=== PATIENT | female | born 1925 | race Caucasian/White ===

== ENCOUNTER 2017-09-10 23:49 | Inpatient (IN) ==
[2017-09-11] MEDS ORDERED: hydrALAZINE 20 MG/1 ML VIAL IV STA (01:15)
[2017-09-11] MEDS ORDERED: hydrALAZINE 20 MG/1 ML VIAL ONE (01:19)
[2017-09-11 01:20] LABS: Basophils % 0.3 % (0.0-0.8); Eosinophils # 0.2 10*3/uL (0.0-0.87); Eosinophils % 1.8 % (0.00-10.9); Hematocrit 41.1 VOL% (35.7-47.0); Hemoglobin 13.9 GM/DL (12.0-16.0); Immature Granulocytes % 0.3 %; Immature Granulocytes Absolute 0.04 #; Lymphocytes # 2.5 10*3/uL (1.4-4.0); Lymphocytes % 20.7 % (21.3-54.2); Mean Corpuscular HGB Conc 33.8 GM/DL (32-36); Mean Corpuscular Hemoglobin 33 PG (27-34); Mean Corpuscular Volume 96.3 FL (87-102); Mean Platelet Volume 8.6 FL (9.6-12.0); Monocytes # 0.9 10*3/uL (0.11-0.8); Monocytes % 7.6 % (1.7-12.7); Neutrophils # 8.3 10*3/uL (1.4-7.4); Neutrophils % 69.3 % (38.7-73.9); Platelet Count 222 T/CUMM (130-400); Red Blood Count 4.27 MC/CUMM (3.8-5.5); Red Cell Distribution Width 12.9 % (9.3-17.3); White Blood Count 11.9 T/CUMM (4-12)
[2017-09-11 01:33] LABS: VBG Base Excess 2.1 MEQ/L (0-4); VBG HCO3 31.2 MEQ/L (24-28); VBG Oxygen Saturation 82.2 %; VBG PH 7.306; VBG PO2 45.4 MMHG (17-40)
[2017-09-11 01:57] LABS: Apearance,Urine CLEAR (Clear); Bilirubin,Urine Negative (Negative); Blood, Urine Small mg/dL (Negative); Glucose,Urine (UA) Negative (Negative); Ketones,Urine Negative (Negative); Nitrite,Urine Negative (Negative); Protein,Urine 100 MG/DL; RBC,Urine 6 /HPF (0-4); Urine Color Colorless (Yellow); Urine Specific Gravity 1.005 (1.001-1.035); Urine Urobilinogen < 2.0 EU/DL (0.2-1.0)
[2017-09-11 02:41] LABS: Alanine Aminotransferase 24 U/L (13-56); Alkaline Phosphatase 116 U/L (45-117); Aspartate Amino Transferase 21 U/L (0-37); Bilirubin,Total < 0.39 MG/DL (0.2-1.0); Blood Urea Nitrogen 13 MG/DL (7-18); Calcium 9.3 MG/DL (8.5-10.1); Glucose 131 MG/DL (74-106); Osmolality,Calculated 267.4 MOS/KG (273-304); Potassium 4.1 MMOL/L (3.5-5.1); Sodium 133 MMOL/L (136-145); Total Protein 7.7 G/DL (6.4-8.3); Troponin I Only < 0.015 NG/ML (0.00-0.045)
[2017-09-11] MEDS ORDERED: CEFEPIME 2,000 MG in SODIUM CHLORIDE 0.9% 100 ML IV STA (03:46)
[2017-09-11] MEDS ORDERED: ONDANSETRON 4 MG/2 ML VIAL IV PRN (04:43)
[2017-09-11] MEDS ORDERED: ACETAMINOPHEN 325 MG TABLET PO PRN (04:43)
[2017-09-11] MEDS ORDERED: NON-FORMULARY MEDICATION (Digoxin [Digoxin] 0.125 MG) PO SCH (05:00)
[2017-09-11] MEDS ORDERED: DIGOXIN 62.5 MCG PO SCH (05:00)
[2017-09-11] MEDS: LEVOTHYROXINE 50 MCG TABLET PO SCH (06:15)
[2017-09-11] MEDS: SODIUM CHLORIDE 0.9% 1,000 ML IV SCH (06:41)
[2017-09-11] MEDS: ALBUTEROL/IPRATROPIUM 3 ML NEB RESP TX SCH ×3 (07:45→20:07)
[2017-09-11] MEDS: VANCOMYCIN INJ 750 MG in SODIUM CHLORIDE 0.9% 250 ML IV SCH ×2 (07:48→17:28)
[2017-09-11] MEDS ORDERED: THEOPHYLLINE ER 200 MG TABLET PO SCH (08:00)
[2017-09-11] MEDS ORDERED: PANTOPRAZOLE 40 MG TABLET PO SCH (09:00)
[2017-09-11] MEDS ORDERED: FUROSEMIDE 20 MG/2 ML VIAL IV ONE (09:19)
[2017-09-11] MEDS: ASPIRIN EC 81 MG TABLET PO SCH (09:24)
[2017-09-11] MEDS: ENOXAPARIN 40 MG/0.4 ML SYRINGE SUBCUT SCH (09:24)
[2017-09-11] MEDS: CLOPIDOGREL 75 MG TABLET PO SCH (09:25)
[2017-09-11] MEDS: THEOPHYLLINE ER (24 HR) 400 MG CAPSULE PO SCH (09:25)
[2017-09-11] MEDS: ESTRADIOL 2 MG TABLET PO SCH (09:25)
[2017-09-11] MEDS: METOPROLOL TARTRATE 50 MG TABLET PO SCH ×2 (09:25→20:17)
[2017-09-11] MEDS: LOSARTAN 50 MG TABLET PO SCH (09:25)
[2017-09-11] MEDS: SELENIUM 200 MCG TABLET PO SCH (09:25)
[2017-09-11] MEDS: carBAMazepine 200 MG TABLET PO SCH ×2 (09:25→20:20)
[2017-09-11] MEDS: MULTIVITAMIN (BEROCCA) TABLET PO SCH (09:25)
[2017-09-11] MEDS: MONTELUKAST CHEW 5 MG TABLET PO SCH (09:26)
[2017-09-11] MEDS: PRAVASTATIN 20 MG TABLET PO SCH (09:26)
[2017-09-11] MEDS: BACLOFEN 10 MG TABLET PO SCH ×4 (09:26→20:20)
[2017-09-11] MEDS: GABAPENTIN 100 MG CAPSULE PO SCH ×2 (09:26→20:20)
[2017-09-11] MEDS: DIGOXIN 0.125 MG TABLET PO SCH ×2 (09:28→09:29)
[2017-09-11] MEDS: PANTOPRAZOLE 40 MG TABLET PO SCH (09:32)
[2017-09-11] MEDS: MAGNESIUM CHLORIDE 64 MG TABLET PO SCH ×2 (09:59→20:20)
[2017-09-11] MEDS ORDERED: LIDOCAINE 1% 5 ML VIAL ONE (12:42)
[2017-09-11] MEDS ORDERED: ETOMIDATE 20 MG/10 ML VIAL IV ONE (12:42)
[2017-09-11] MEDS ORDERED: PROPOFOL 200 MG/20 ML VIAL IV ONE (12:42)
[2017-09-11] MEDS: methylPREDNISolone SOD SUC 40 MG/1 ML VIAL IV SCH ×2 (13:08→23:51)
[2017-09-12] MEDS: ALBUTEROL/IPRATROPIUM 3 ML NEB RESP TX SCH ×4 (00:57→19:24)
[2017-09-12 03:26] LABS: ABG Base Excess 3.3 MMOL/L (-2.5-2.5); ABG HCO3 28.8 MMOL/L (20-26); ABG Oxygen Saturation 98.4 % (95-100); ABG PCO2 47.6 MM HG (35-48); ABG PH 7.399 (7.35-7.45); ABG PO2 140.3 MM HG (80-95); ABG TCO2 30.2 MMOL/L (23-27); Allen Test Positive
[2017-09-12] MEDS: VANCOMYCIN INJ 750 MG in SODIUM CHLORIDE 0.9% 250 ML IV SCH (03:59)
[2017-09-12 05:25] LABS: Basophils % 0.1 % (0.0-0.8); Eosinophils % 0.2 % (0.00-10.9); Hematocrit 36.8 VOL% (35.7-47.0); Hemoglobin 12.2 GM/DL (12.0-16.0); Immature Granulocytes % 0.4 %; Immature Granulocytes Absolute 0.04 #; Lymphocytes # 1.3 10*3/uL (1.4-4.0); Lymphocytes % 13.8 % (21.3-54.2); Mean Corpuscular HGB Conc 33.2 GM/DL (32-36); Mean Corpuscular Hemoglobin 32 PG (27-34); Mean Corpuscular Volume 97.6 FL (87-102); Mean Platelet Volume 8.8 FL (9.6-12.0); Monocytes # 0.2 10*3/uL (0.11-0.8); Monocytes % 2.1 % (1.7-12.7); Neutrophils # 7.7 10*3/uL (1.4-7.4); Neutrophils % 83.4 % (38.7-73.9); Platelet Count 179 T/CUMM (130-400); Red Blood Count 3.77 MC/CUMM (3.8-5.5); Red Cell Distribution Width 12.9 % (9.3-17.3); White Blood Count 9.2 T/CUMM (4-12)
[2017-09-12] MEDS: SODIUM CHLORIDE 0.9% 1,000 ML IV SCH (05:37)
[2017-09-12 06:02] LABS: Calcium 8.1 MG/DL (8.5-10.1); Magnesium 2.2 MG/DL (1.8-2.4); Osmolality,Calculated 271.1 MOS/KG (273-304); Potassium 4.5 MMOL/L (3.5-5.1)
[2017-09-12] MEDS: LEVOTHYROXINE 50 MCG TABLET PO SCH (06:28)
[2017-09-12] MEDS: MULTIVITAMIN (BEROCCA) TABLET PO SCH (10:10)
[2017-09-12] MEDS: THEOPHYLLINE ER (24 HR) 400 MG CAPSULE PO SCH (10:11)
[2017-09-12] MEDS: ESTRADIOL 2 MG TABLET PO SCH (10:11)
[2017-09-12] MEDS: LOSARTAN 50 MG TABLET PO SCH (10:11)
[2017-09-12] MEDS: BACLOFEN 10 MG TABLET PO SCH ×3 (10:11→21:22)
[2017-09-12] MEDS: GABAPENTIN 100 MG CAPSULE PO SCH ×2 (10:12→21:22)
[2017-09-12] MEDS: DIGOXIN 0.125 MG TABLET PO SCH (10:12)
[2017-09-12] MEDS: METOPROLOL TARTRATE 50 MG TABLET PO SCH ×2 (10:13→18:13)
[2017-09-12] MEDS: MONTELUKAST CHEW 5 MG TABLET PO SCH (10:13)
[2017-09-12] MEDS: PRAVASTATIN 20 MG TABLET PO SCH (10:13)
[2017-09-12] MEDS: ASPIRIN EC 81 MG TABLET PO SCH (10:13)
[2017-09-12] MEDS: SELENIUM 200 MCG TABLET PO SCH (10:13)
[2017-09-12] MEDS: PANTOPRAZOLE 40 MG TABLET PO SCH (10:14)
[2017-09-12] MEDS: carBAMazepine 200 MG TABLET PO SCH ×2 (10:14→21:22)
[2017-09-12] MEDS: CLOPIDOGREL 75 MG TABLET PO SCH (10:14)
[2017-09-12] MEDS: ENOXAPARIN 40 MG/0.4 ML SYRINGE SUBCUT SCH (10:14)
[2017-09-12] MEDS: MAGNESIUM CHLORIDE 64 MG TABLET PO SCH ×2 (10:15→21:22)
[2017-09-12] MEDS: methylPREDNISolone SOD SUC 40 MG/1 ML VIAL IV SCH ×2 (10:56→23:28)
[2017-09-12 14:43] LABS: Troponin I Only < 0.015 NG/ML (0.00-0.045)
[2017-09-12 18:36] LABS: Troponin I Only < 0.015 NG/ML (0.00-0.045)
[2017-09-13 00:26] LABS: Basophils % 0.2 % (0.0-0.8); Eosinophils # 0.2 10*3/uL (0.0-0.87); Eosinophils % 1.7 % (0.00-10.9); Hematocrit 33.5 VOL% (35.7-47.0); Hemoglobin 11.3 GM/DL (12.0-16.0); Immature Granulocytes % 0.5 %; Immature Granulocytes Absolute 0.05 #; Lymphocytes # 2.5 10*3/uL (1.4-4.0); Mean Corpuscular HGB Conc 33.7 GM/DL (32-36); Mean Corpuscular Hemoglobin 33 PG (27-34); Mean Corpuscular Volume 96.5 FL (87-102); Mean Platelet Volume 8.8 FL (9.6-12.0); Monocytes # 1.1 10*3/uL (0.11-0.8); Monocytes % 11.7 % (1.7-12.7); Neutrophils # 5.5 10*3/uL (1.4-7.4); Neutrophils % 58.9 % (38.7-73.9); Platelet Count 173 T/CUMM (130-400); Red Blood Count 3.47 MC/CUMM (3.8-5.5); Red Cell Distribution Width 13.1 % (9.3-17.3); White Blood Count 9.4 T/CUMM (4-12)
[2017-09-13 00:53] LABS: Magnesium 1.9 MG/DL (1.8-2.4); Potassium 3.7 MMOL/L (3.5-5.1)
[2017-09-13 00:57] LABS: Risk Ratio 2.06; Troponin I Only < 0.015 NG/ML (0.00-0.045); VLDL CHOLESTEROL 16.2 MG/DL
[2017-09-13] MEDS: VANCOMYCIN INJ 750 MG in SODIUM CHLORIDE 0.9% 250 ML IV SCH (04:32)
[2017-09-13] MEDS: ALBUTEROL/IPRATROPIUM 3 ML NEB RESP TX SCH ×4 (04:57→19:05)
[2017-09-13] MEDS: SODIUM CHLORIDE 0.9% 1,000 ML IV SCH (06:13)
[2017-09-13] MEDS: LEVOTHYROXINE 50 MCG TABLET PO SCH (06:15)
[2017-09-13 06:16] LABS: ABG Base Excess 4.5 MMOL/L (-2.5-2.5); ABG HCO3 29.5 MMOL/L (20-26); ABG Oxygen Saturation 98.4 % (95-100); ABG PCO2 45.9 MM HG (35-48); ABG PH 7.426 (7.35-7.45); ABG TCO2 30.9 MMOL/L (23-27)
[2017-09-13] MEDS: SELENIUM 200 MCG TABLET PO SCH (09:57)
[2017-09-13] MEDS: METOPROLOL TARTRATE 50 MG TABLET PO SCH ×2 (09:58→18:21)
[2017-09-13] MEDS: LOSARTAN 50 MG TABLET PO SCH (09:58)
[2017-09-13] MEDS: MAGNESIUM CHLORIDE 64 MG TABLET PO SCH ×2 (09:58→22:32)
[2017-09-13] MEDS: THEOPHYLLINE ER (24 HR) 400 MG CAPSULE PO SCH (09:59)
[2017-09-13] MEDS: carBAMazepine 200 MG TABLET PO SCH ×2 (09:59→22:31)
[2017-09-13] MEDS: PRAVASTATIN 20 MG TABLET PO SCH (09:59)
[2017-09-13] MEDS: MONTELUKAST CHEW 5 MG TABLET PO SCH (09:59)
[2017-09-13] MEDS: DIGOXIN 0.125 MG TABLET PO SCH (09:59)
[2017-09-13] MEDS: GABAPENTIN 100 MG CAPSULE PO SCH ×2 (10:00→22:30)
[2017-09-13] MEDS: BACLOFEN 10 MG TABLET PO SCH ×3 (10:00→22:30)
[2017-09-13] MEDS: MULTIVITAMIN (BEROCCA) TABLET PO SCH (10:00)
[2017-09-13] MEDS: ASPIRIN EC 81 MG TABLET PO SCH (10:00)
[2017-09-13] MEDS: PANTOPRAZOLE 40 MG TABLET PO SCH (10:00)
[2017-09-13] MEDS: ESTRADIOL 2 MG TABLET PO SCH (10:00)
[2017-09-13] MEDS: methylPREDNISolone SOD SUC 40 MG/1 ML VIAL IV SCH ×2 (13:12→22:34)
[2017-09-13] MEDS: FUROSEMIDE 20 MG/2 ML VIAL IV SCH ×2 (15:30→22:29)
[2017-09-14] MEDS: ALBUTEROL/IPRATROPIUM 3 ML NEB RESP TX SCH ×4 (01:06→19:09)
[2017-09-14] MEDS: VANCOMYCIN INJ 750 MG in SODIUM CHLORIDE 0.9% 250 ML IV SCH (04:25)
[2017-09-14] MEDS: LEVOTHYROXINE 50 MCG TABLET PO SCH (06:12)
[2017-09-14 07:09] LABS: Basophils % 0.2 % (0.0-0.8); Eosinophils % 0.2 % (0.00-10.9); Hematocrit 36.7 VOL% (35.7-47.0); Hemoglobin 12.4 GM/DL (12.0-16.0); Immature Granulocytes % 0.5 %; Immature Granulocytes Absolute 0.05 #; Lymphocytes # 2.1 10*3/uL (1.4-4.0); Lymphocytes % 20.2 % (21.3-54.2); Mean Corpuscular HGB Conc 33.8 GM/DL (32-36); Mean Corpuscular Hemoglobin 33 PG (27-34); Mean Corpuscular Volume 96.6 FL (87-102); Mean Platelet Volume 8.9 FL (9.6-12.0); Monocytes # 0.8 10*3/uL (0.11-0.8); Monocytes % 7.8 % (1.7-12.7); Neutrophils # 7.2 10*3/uL (1.4-7.4); Neutrophils % 71.1 % (38.7-73.9); Platelet Count 223 T/CUMM (130-400); Red Cell Distribution Width 13.2 % (9.3-17.3); White Blood Count 10.1 T/CUMM (4-12)
[2017-09-14 07:27] LABS: Calcium 8.6 MG/DL (8.5-10.1); Osmolality,Calculated 272.1 MOS/KG (273-304); Potassium 4.2 MMOL/L (3.5-5.1)
[2017-09-14] MEDS ORDERED: hydrALAZINE 20 MG/1 ML VIAL IV PRN (11:29)
[2017-09-14] MEDS: FUROSEMIDE 20 MG/2 ML VIAL IV SCH (12:02)
[2017-09-14] MEDS: DIGOXIN 0.125 MG TABLET PO SCH (15:03)
[2017-09-14] MEDS: METOPROLOL TARTRATE 50 MG TABLET PO SCH ×2 (15:03→18:55)
[2017-09-14] MEDS: LOSARTAN 50 MG TABLET PO SCH (15:04)
[2017-09-14] MEDS ORDERED: METOPROLOL TARTRATE 5 MG/5 ML VIAL IV ONE (15:19)
[2017-09-14] MEDS: THEOPHYLLINE ER (24 HR) 400 MG CAPSULE PO SCH (15:30)
[2017-09-14] MEDS: SODIUM CHLORIDE 0.9% 1,000 ML IV SCH (15:30)
[2017-09-14] MEDS: ASPIRIN EC 81 MG TABLET PO SCH (15:30)
[2017-09-14] MEDS: PRAVASTATIN 20 MG TABLET PO SCH (15:31)
[2017-09-14] MEDS: GABAPENTIN 100 MG CAPSULE PO SCH ×2 (15:31→22:04)
[2017-09-14] MEDS: BACLOFEN 10 MG TABLET PO SCH ×2 (15:31→22:05)
[2017-09-14] MEDS: MULTIVITAMIN (BEROCCA) TABLET PO SCH (15:31)
[2017-09-14] MEDS: ESTRADIOL 2 MG TABLET PO SCH (15:31)
[2017-09-14] MEDS: SELENIUM 200 MCG TABLET PO SCH (15:32)
[2017-09-14] MEDS: MONTELUKAST CHEW 5 MG TABLET PO SCH (15:32)
[2017-09-14] MEDS: PANTOPRAZOLE 40 MG TABLET PO SCH (15:32)
[2017-09-14] MEDS: MAGNESIUM CHLORIDE 64 MG TABLET PO SCH ×2 (15:33→22:04)
[2017-09-14] MEDS: methylPREDNISolone SOD SUC 40 MG/1 ML VIAL IV SCH ×2 (15:33→23:04)
[2017-09-14] MEDS: carBAMazepine 200 MG TABLET PO SCH ×2 (15:33→22:04)
[2017-09-14] MEDS ORDERED: AMIODARONE INJ 150 MG in DEXTROSE 5% 100 ML IV ONE (15:53)
[2017-09-14] MEDS ORDERED: AMIODARONE 150 MG/3 ML VIAL ONE (15:54)
[2017-09-14] MEDS ORDERED: AMIODARONE INJ 450 MG in DEXTROSE 5% 241 ML IV SCH ×2 (16:00→22:00)
[2017-09-15] MEDS: ALBUTEROL/IPRATROPIUM 3 ML NEB RESP TX SCH ×4 (00:24→19:13)
[2017-09-15] MEDS: VANCOMYCIN INJ 750 MG in SODIUM CHLORIDE 0.9% 250 ML IV SCH (03:39)
[2017-09-15] MEDS: LEVOTHYROXINE 50 MCG TABLET PO SCH (06:41)
[2017-09-15 07:29] LABS: Theophylline 2.1 UG/ML (10-20)
[2017-09-15] MEDS: MAGNESIUM CHLORIDE 64 MG TABLET PO SCH ×2 (09:05→22:12)
[2017-09-15] MEDS: CLOPIDOGREL 75 MG TABLET PO SCH (09:05)
[2017-09-15] MEDS: FUROSEMIDE 20 MG TABLET PO SCH ×2 (09:05→15:20)
[2017-09-15] MEDS: PANTOPRAZOLE 40 MG TABLET PO SCH ×2 (09:05→22:11)
[2017-09-15] MEDS: BACLOFEN 10 MG TABLET PO SCH ×3 (09:05→22:11)
[2017-09-15] MEDS: THEOPHYLLINE ER (24 HR) 400 MG CAPSULE PO SCH (09:05)
[2017-09-15] MEDS: METOPROLOL TARTRATE 50 MG TABLET PO SCH ×2 (09:06→18:07)
[2017-09-15] MEDS: SELENIUM 200 MCG TABLET PO SCH (09:07)
[2017-09-15] MEDS: PRAVASTATIN 20 MG TABLET PO SCH (09:07)
[2017-09-15] MEDS: DIGOXIN 0.125 MG TABLET PO SCH (09:07)
[2017-09-15] MEDS: ESTRADIOL 2 MG TABLET PO SCH (09:07)
[2017-09-15] MEDS: MULTIVITAMIN (BEROCCA) TABLET PO SCH (09:08)
[2017-09-15] MEDS: carBAMazepine 200 MG TABLET PO SCH ×2 (09:08→22:12)
[2017-09-15] MEDS: ASPIRIN EC 81 MG TABLET PO SCH (09:08)
[2017-09-15] MEDS: GABAPENTIN 100 MG CAPSULE PO SCH ×2 (09:08→22:11)
[2017-09-15] MEDS: LOSARTAN 50 MG TABLET PO SCH (09:08)
[2017-09-15] MEDS: MONTELUKAST CHEW 5 MG TABLET PO SCH (09:08)
[2017-09-15] MEDS: AMIODARONE 200 MG TABLET PO SCH ×2 (09:13→22:11)
[2017-09-15] MEDS: ENOXAPARIN 40 MG/0.4 ML SYRINGE SUBCUT SCH (09:15)
[2017-09-15 09:53] LABS: Basophils % 0.1 % (0.0-0.8); Eosinophils % 0.2 % (0.00-10.9); Hematocrit 38.4 VOL% (35.7-47.0); Hemoglobin 12.9 GM/DL (12.0-16.0); Immature Granulocytes % 0.6 %; Immature Granulocytes Absolute 0.05 #; Lymphocytes # 1.9 10*3/uL (1.4-4.0); Lymphocytes % 23.1 % (21.3-54.2); Mean Corpuscular HGB Conc 33.6 GM/DL (32-36); Mean Corpuscular Hemoglobin 33 PG (27-34); Mean Corpuscular Volume 97.7 FL (87-102); Mean Platelet Volume 8.8 FL (9.6-12.0); Monocytes # 0.6 10*3/uL (0.11-0.8); Monocytes % 7.7 % (1.7-12.7); Neutrophils # 5.6 10*3/uL (1.4-7.4); Neutrophils % 68.3 % (38.7-73.9); Platelet Count 245 T/CUMM (130-400); Red Blood Count 3.93 MC/CUMM (3.8-5.5); Red Cell Distribution Width 13.2 % (9.3-17.3); White Blood Count 8.2 T/CUMM (4-12)
[2017-09-15 10:04] LABS: Calcium 8.8 MG/DL (8.5-10.1); Magnesium 2.3 MG/DL (1.8-2.4); Osmolality,Calculated 272.2 MOS/KG (273-304); Potassium 4.4 MMOL/L (3.5-5.1)
[2017-09-15] MEDS: methylPREDNISolone SOD SUC 40 MG/1 ML VIAL IV SCH ×2 (11:45→23:47)
[2017-09-15] MEDS ORDERED: METOPROLOL TARTRATE 25 MG TABLET PO ONE (12:08)
[2017-09-15] MEDS ORDERED: AMIODARONE INJ 450 MG in DEXTROSE 5% 241 ML IV SCH (13:01)
[2017-09-15] MEDS: APIXABAN 2.5 MG TABLET PO SCH (22:11)
[2017-09-15] MEDS: DILTIAZEM CD 120 MG CAPSULE PO SCH (22:11)
[2017-09-16] MEDS: ALBUTEROL/IPRATROPIUM 3 ML NEB RESP TX SCH ×4 (00:46→19:17)
[2017-09-16] MEDS ORDERED: VANCOMYCIN INJ 750 MG in SODIUM CHLORIDE 0.9% 150 ML IV SCH (04:00)
[2017-09-16 05:34] LABS: Basophils % 0.2 % (0.0-0.8); Eosinophils % 0.1 % (0.00-10.9); Hematocrit 38.7 VOL% (35.7-47.0); Hemoglobin 12.8 GM/DL (12.0-16.0); Immature Granulocytes % 0.6 %; Immature Granulocytes Absolute 0.05 #; Lymphocytes # 1.4 10*3/uL (1.4-4.0); Lymphocytes % 16.3 % (21.3-54.2); Mean Corpuscular HGB Conc 33.1 GM/DL (32-36); Mean Corpuscular Hemoglobin 32 PG (27-34); Mean Corpuscular Volume 97.2 FL (87-102); Mean Platelet Volume 9.3 FL (9.6-12.0); Monocytes # 0.2 10*3/uL (0.11-0.8); Monocytes % 2.7 % (1.7-12.7); Neutrophils # 6.8 10*3/uL (1.4-7.4); Neutrophils % 80.1 % (38.7-73.9); Platelet Count 258 T/CUMM (130-400); Red Blood Count 3.98 MC/CUMM (3.8-5.5); Red Cell Distribution Width 13.2 % (9.3-17.3); White Blood Count 8.5 T/CUMM (4-12)
[2017-09-16 05:48] LABS: Calcium 8.5 MG/DL (8.5-10.1); Magnesium 2.2 MG/DL (1.8-2.4); Potassium 4.3 MMOL/L (3.5-5.1)
[2017-09-16] MEDS: LEVOTHYROXINE 50 MCG TABLET PO SCH (06:28)
[2017-09-16] MEDS: THEOPHYLLINE ER (24 HR) 400 MG CAPSULE PO SCH (09:47)
[2017-09-16] MEDS: carBAMazepine 200 MG TABLET PO SCH ×2 (09:47→21:00)
[2017-09-16] MEDS: MONTELUKAST CHEW 5 MG TABLET PO SCH (09:48)
[2017-09-16] MEDS: GABAPENTIN 100 MG CAPSULE PO SCH ×2 (09:48→20:58)
[2017-09-16] MEDS: PANTOPRAZOLE 40 MG TABLET PO SCH ×2 (09:48→20:59)
[2017-09-16] MEDS: SELENIUM 200 MCG TABLET PO SCH (09:48)
[2017-09-16] MEDS: MULTIVITAMIN (BEROCCA) TABLET PO SCH (09:48)
[2017-09-16] MEDS: CLOPIDOGREL 75 MG TABLET PO SCH (09:48)
[2017-09-16] MEDS: DILTIAZEM CD 120 MG CAPSULE PO SCH (09:48)
[2017-09-16] MEDS: LOSARTAN 50 MG TABLET PO SCH (09:48)
[2017-09-16] MEDS: ESTRADIOL 2 MG TABLET PO SCH (09:48)
[2017-09-16] MEDS: APIXABAN 2.5 MG TABLET PO SCH ×2 (09:49→20:57)
[2017-09-16] MEDS: MAGNESIUM CHLORIDE 64 MG TABLET PO SCH ×2 (09:49→20:59)
[2017-09-16] MEDS: AMIODARONE 200 MG TABLET PO SCH ×2 (09:49→20:56)
[2017-09-16] MEDS: FUROSEMIDE 20 MG TABLET PO SCH ×2 (09:49→16:52)
[2017-09-16] MEDS: METOPROLOL TARTRATE 50 MG TABLET PO SCH ×2 (09:49→18:28)
[2017-09-16] MEDS: BACLOFEN 10 MG TABLET PO SCH ×3 (09:49→20:57)
[2017-09-16] MEDS: PRAVASTATIN 20 MG TABLET PO SCH (09:50)
[2017-09-16] MEDS: VANCOMYCIN INJ 750 MG in SODIUM CHLORIDE 0.9% 150 ML IV SCH (09:50)
[2017-09-16] MEDS: methylPREDNISolone SOD SUC 40 MG/1 ML VIAL IV SCH (15:57)
[2017-09-16] MEDS: DILTIAZEM CD 180 MG CAPSULE PO SCH (20:57)
[2017-09-16] MEDS: predniSONE 20 MG TABLET PO SCH (20:58)
[2017-09-17] MEDS: ALBUTEROL/IPRATROPIUM 3 ML NEB RESP TX SCH ×2 (00:56→08:36)
[2017-09-17 02:32] LABS: Basophils % 0.2 % (0.0-0.8); Eosinophils # 0.1 10*3/uL (0.0-0.87); Eosinophils % 0.6 % (0.00-10.9); Hematocrit 36.5 VOL% (35.7-47.0); Hemoglobin 12.4 GM/DL (12.0-16.0); Immature Granulocytes % 1.1 %; Lymphocytes # 1.1 10*3/uL (1.4-4.0); Lymphocytes % 12.2 % (21.3-54.2); Mean Corpuscular Hemoglobin 33 PG (27-34); Mean Corpuscular Volume 96.3 FL (87-102); Mean Platelet Volume 8.9 FL (9.6-12.0); Monocytes # 0.6 10*3/uL (0.11-0.8); Monocytes % 6.2 % (1.7-12.7); Neutrophils # 7.5 10*3/uL (1.4-7.4); Neutrophils % 79.7 % (38.7-73.9); Platelet Count 251 T/CUMM (130-400); Red Blood Count 3.79 MC/CUMM (3.8-5.5); Red Cell Distribution Width 13.1 % (9.3-17.3); White Blood Count 9.4 T/CUMM (4-12)
[2017-09-17 03:15] LABS: Calcium 8.7 MG/DL (8.5-10.1); Magnesium 2.3 MG/DL (1.8-2.4); Osmolality,Calculated 275.1 MOS/KG (273-304); Potassium 3.5 MMOL/L (3.5-5.1)
[2017-09-17 08:21] VITALS: BP 109/56
[2017-09-17] MEDS: MONTELUKAST CHEW 5 MG TABLET PO SCH (09:38)
[2017-09-17] MEDS: carBAMazepine 200 MG TABLET PO SCH (09:38)
[2017-09-17] MEDS: MAGNESIUM CHLORIDE 64 MG TABLET PO SCH (09:38)
[2017-09-17] MEDS: THEOPHYLLINE ER (24 HR) 400 MG CAPSULE PO SCH (09:38)
[2017-09-17] MEDS: LEVOTHYROXINE 50 MCG TABLET PO SCH (09:38)
[2017-09-17] MEDS: predniSONE 20 MG TABLET PO SCH (09:38)
[2017-09-17] MEDS: DILTIAZEM CD 180 MG CAPSULE PO SCH (09:38)
[2017-09-17] MEDS: BACLOFEN 10 MG TABLET PO SCH (09:38)
[2017-09-17] MEDS: PRAVASTATIN 20 MG TABLET PO SCH (09:38)
[2017-09-17] MEDS: SELENIUM 200 MCG TABLET PO SCH (09:38)
[2017-09-17] MEDS: METOPROLOL TARTRATE 50 MG TABLET PO SCH (09:39)
[2017-09-17] MEDS: GABAPENTIN 100 MG CAPSULE PO SCH (09:39)
[2017-09-17] MEDS: APIXABAN 2.5 MG TABLET PO SCH (09:39)
[2017-09-17] MEDS: MULTIVITAMIN (BEROCCA) TABLET PO SCH (09:39)
[2017-09-17] MEDS: ESTRADIOL 2 MG TABLET PO SCH (09:39)
[2017-09-17] MEDS: LOSARTAN 50 MG TABLET PO SCH (09:39)
[2017-09-17] MEDS: CLOPIDOGREL 75 MG TABLET PO SCH (09:40)
[2017-09-17] MEDS: AMIODARONE 200 MG TABLET PO SCH (09:40)
[2017-09-17] MEDS: PANTOPRAZOLE 40 MG TABLET PO SCH (09:40)
[2017-09-17] MEDS: FUROSEMIDE 20 MG TABLET PO SCH (09:40)
[2017-09-17] MEDS: VANCOMYCIN INJ 750 MG in SODIUM CHLORIDE 0.9% 150 ML IV SCH (10:25)
== END 2017-09-17 13:15 | disposition home or self-care (01) | DRG 871 ==
LOC: N.ED 23:49 → N.TELES 09-11 04:39 → SUATTDRO 09-11 04:39 → N.TELES 09-11 05:30
PROVIDERS: ADMIT Family Medicine; ATTEND Internal Medicine Cardiovascular Disease

== ENCOUNTER 2017-09-18 11:30 | Inpatient (IN) ==
[2017-09-18 12:45] LABS: Basophils % 0.1 % (0.0-0.8); Eosinophils # 0.1 10*3/uL (0.0-0.87); Hematocrit 36.9 VOL% (35.7-47.0); Hemoglobin 12.6 GM/DL (12.0-16.0); Immature Granulocytes % 0.6 %; Immature Granulocytes Absolute 0.07 #; Lymphocytes # 2.3 10*3/uL (1.4-4.0); Lymphocytes % 18.8 % (21.3-54.2); Mean Corpuscular HGB Conc 34.1 GM/DL (32-36); Mean Corpuscular Hemoglobin 33 PG (27-34); Mean Corpuscular Volume 96.9 FL (87-102); Mean Platelet Volume 8.7 FL (9.6-12.0); Monocytes # 1.2 10*3/uL (0.11-0.8); Neutrophils # 8.4 10*3/uL (1.4-7.4); Neutrophils % 69.5 % (38.7-73.9); Platelet Count 275 T/CUMM (130-400); Red Blood Count 3.81 MC/CUMM (3.8-5.5); Red Cell Distribution Width 13.3 % (9.3-17.3); White Blood Count 12.1 T/CUMM (4-12)
[2017-09-18 13:11] LABS: Calcium 8.5 MG/DL (8.5-10.1); Free T4 (Free Thyroxine) 1.46 NG/DL (0.76-1.46); Osmolality,Calculated 280.8 MOS/KG (273-304); Potassium 3.1 MMOL/L (3.5-5.1); Thyroid Stimulating Hormone 4.06 uIU/ml (0.358-3.74)
[2017-09-18 13:15] LABS: Troponin I Only 0.051 NG/ML (0.00-0.045)
[2017-09-18 13:49] LABS: Apearance,Urine CLOUDY (Clear); Bacteria,Urine Many /HPF (Few); Bilirubin,Urine Negative (Negative); Blood, Urine Moderate mg/dL (Negative); Glucose,Urine (UA) Negative (Negative); Ketones,Urine Negative (Negative); Mucus,Urine Occasional /LPF (Occasional); Nitrite,Urine Negative (Negative); Protein,Urine 30 MG/DL; RBC,Urine 7 /HPF (0-4); Squamous Epithelial Cell,Urine Moderate /HPF (0-10); Urine Color Yellow (Yellow); Urine Specific Gravity 1.015 (1.001-1.035); Urine Urobilinogen < 2.0 EU/DL (0.2-1.0); WBC,Urine 92 /HPF (0-6)
[2017-09-18] MEDS ORDERED: DOCUSATE SODIUM 100 MG CAPSULE PO PRN (14:25)
[2017-09-18] MEDS ORDERED: traZODone 50 MG TABLET PO PRN (14:25)
[2017-09-18] MEDS ORDERED: ACETAMINOPHEN 325 MG TABLET PO PRN (14:25)
[2017-09-18] MEDS ORDERED: TOBRAMYCIN 0.3% OPH SOLN 5 ML BOTTLE BOTH EYES PRN (14:28)
[2017-09-18] MEDS: BACLOFEN 10 MG TABLET PO SCH ×2 (16:09→20:55)
[2017-09-18] MEDS: POTASSIUM CHLORIDE 20 MEQ TABLET PO SCH ×3 (16:10→23:59)
[2017-09-18] MEDS: CEFDINIR 300 MG CAPSULE PO SCH ×2 (16:10→20:56)
[2017-09-18] MEDS ORDERED: ONDANSETRON 4 MG/2 ML VIAL IV PRN (18:52)
[2017-09-18] MEDS ORDERED: SODIUM PHOSPHATE ENEMA 133 ML BOTTLE RECTAL PRN (18:52)
[2017-09-18] MEDS ORDERED: METOPROLOL TARTRATE 25 MG TABLET PO SCH (19:00)
[2017-09-18] MEDS: GABAPENTIN 100 MG CAPSULE PO SCH (20:55)
[2017-09-18] MEDS: carBAMazepine 200 MG TABLET PO SCH (20:56)
[2017-09-18] MEDS: APIXABAN 2.5 MG TABLET PO SCH (20:56)
[2017-09-18] MEDS ORDERED: PRAVASTATIN 20 MG TABLET PO SCH (21:00)
[2017-09-18] MEDS ORDERED: AMIODARONE 200 MG TABLET PO SCH (21:00)
[2017-09-19] MEDS ORDERED: ATROPINE 1 MG/1 ML VIAL ONE (04:14)
[2017-09-19] MEDS ORDERED: DOPamine 800 MG/250 ML PREMIX IV ONE (04:17)
[2017-09-19] MEDS ORDERED: ATROPINE 1 MG/1 ML VIAL IV ONE (04:30)
[2017-09-19] MEDS ORDERED: ALBUTEROL 1.25 MG/3 ML NEB RESP TX PRN (04:48)
[2017-09-19] MEDS ORDERED: DOPamine 800 MG/250 ML PREMIX IV SCH (05:03)
[2017-09-19] MEDS ORDERED: SODIUM CHLORIDE 0.9% 1,000 ML IV SCH (05:03)
[2017-09-19 05:11] LABS: ABG HCO3 21.1 MMOL/L (20-26); ABG PCO2 52.7 MM HG (35-48); ABG PH 7.262 (7.35-7.45); ABG TCO2 21.4 MMOL/L (23-27)
[2017-09-19 05:14] LABS: Basophils % 0.2 % (0.0-0.8); Eosinophils % 0.1 % (0.00-10.9); Hematocrit 36.3 VOL% (35.7-47.0); Hemoglobin 11.9 GM/DL (12.0-16.0); Immature Granulocytes Absolute 0.72 #; Lymphocytes # 5.7 10*3/uL (1.4-4.0); Lymphocytes % 31.4 % (21.3-54.2); Mean Corpuscular HGB Conc 32.8 GM/DL (32-36); Mean Corpuscular Hemoglobin 33 PG (27-34); Mean Corpuscular Volume 100.8 FL (87-102); Monocytes # 0.4 10*3/uL (0.11-0.8); Monocytes % 2.4 % (1.7-12.7); NRBC # 0.02 10*3/uL; Neutrophils # 11.2 10*3/uL (1.4-7.4); Neutrophils % 61.9 % (38.7-73.9); Platelet Count 237 T/CUMM (130-400); Red Cell Distribution Width 13.6 % (9.3-17.3)
[2017-09-19 05:42] LABS: Alanine Aminotransferase 627 U/L (13-56); Albumin 2.6 G/DL (3.4-5.0); Alkaline Phosphatase 122 U/L (45-117); Aspartate Amino Transferase 1168 U/L (0-37); Blood Urea Nitrogen 45 MG/DL (7-18); Calcium 7.5 MG/DL (8.5-10.1); Glucose 354 MG/DL (74-106); Osmolality,Calculated 306.3 MOS/KG (273-304); Potassium 5.4 MMOL/L (3.5-5.1); Sodium 141 MMOL/L (136-145); Total Protein 5.3 G/DL (6.4-8.3)
[2017-09-19 05:45] LABS: Band Neutrophils 1 % (0-10); Giant Platelets Few; Hypochromasia 1+; Lymphocytes 34 % (20-55); Ovalocytes Slight; Platelet Estimate Adequate; Segmented Neutrophils 63 % (50-85); Total Cells Counted 100
[2017-09-19 05:48] LABS: Troponin I Only 0.061 NG/ML (0.00-0.045)
[2017-09-19] MEDS ORDERED: DEXTROSE 50% 25 GM/50 ML VIAL IV PRN (06:05)
[2017-09-19] MEDS ORDERED: GLUCAGON 1 MG VIAL IM PRN (06:05)
[2017-09-19 06:11] LABS: ABG Base Excess -2.9 MMOL/L (-2.5-2.5); ABG PCO2 40.5 MM HG (35-48); ABG PH 7.352 (7.35-7.45)
[2017-09-19] MEDS ORDERED: ALBUTEROL 1.25 MG/3 ML NEB RESP TX SCH (07:00)
[2017-09-19] MEDS ORDERED: LEVOTHYROXINE 50 MCG TABLET PO SCH (07:00)
[2017-09-19] MEDS ORDERED: INSULIN REGULAR 100 UNIT/ML SUBCUT SCH (07:00)
[2017-09-19] MEDS ORDERED: LOSARTAN 50 MG TABLET PO SCH (09:00)
[2017-09-19] MEDS ORDERED: MONTELUKAST CHEW 5 MG TABLET PO SCH (09:00)
[2017-09-19] MEDS ORDERED: PANTOPRAZOLE 40 MG VIAL IV SCH (09:00)
[2017-09-19] MEDS ORDERED: PANTOPRAZOLE 40 MG TABLET PO SCH (09:00)
[2017-09-19] MEDS ORDERED: CLOPIDOGREL 75 MG TABLET PO SCH (09:00)
[2017-09-19] MEDS ORDERED: DOCUSATE SODIUM 100 MG/10 ML UDCUP PO SCH (09:00)
[2017-09-19] MEDS ORDERED: MORPHINE 2 MG/1 ML SYRINGE IV ONE (09:34)
[2017-09-19] MEDS ORDERED: LORazepam 2 MG/1 ML VIAL IV PRN (09:39)
[2017-09-19] MEDS: MORPHINE 2 MG/1 ML SYRINGE IV PRN ×2 (10:15→11:48)
[2017-09-19] MEDS: APIXABAN 2.5 MG TABLET PO SCH (10:43)
[2017-09-19] MEDS: BACLOFEN 10 MG TABLET PO SCH (10:44)
[2017-09-19] MEDS: carBAMazepine 200 MG TABLET PO SCH (10:44)
[2017-09-19] MEDS: GABAPENTIN 100 MG CAPSULE PO SCH (10:44)
[2017-09-19] MEDS ORDERED: fentaNYL 12 MCG/HR PATCH TRANSDERM SCH (14:30)
[2017-09-19 16:45] VITALS: BP 90/42
== END 2017-09-19 19:38 | disposition expired | DRG 690 ==
LOC: N.EDINP 11:30 → N.ED 11:30 → SUATTDRO 14:15 → N.2E 15:06 → N.CVR 09-19 05:17 → N.4E 09-19 16:23
PROVIDERS: ADMIT Internal Medicine Cardiovascular Disease; ATTEND Internal Medicine